=== PATIENT | female | born 1955 | race Caucasian/White ===

== ENCOUNTER 2018-12-19 06:27 | Day surgery (SDC) | payer OTHER ==
[2018-12-19] MEDS ORDERED: Lactated Ringers 1,000 ML IV SCH (07:00)
[2018-12-19] MEDS ORDERED: Midazolam 1 MG/ML 2 ML SDV ONE (07:32)
[2018-12-19] MEDS ORDERED: Propofol 200 MG/20 ML SDV ONE (07:32)
[2018-12-19] MEDS ORDERED: fentaNYL 100 MCG/2 ML SDV ONE (07:32)
[2018-12-19 09:23] VITALS: BP 143/82
--- NOTE | 2018-12-20 08:33 | OR ---
DATE OF PROCEDURE: 12/19/2018 PREOPERATIVE DIAGNOSIS: History of colon polyps. POSTOPERATIVE DIAGNOSIS: Three colon polyps, history of colon polyps. PROCEDURE PERFORMED: Colonoscopy to the cecum with biopsy resection of small polyp at 20 cm from the anal verge and snare cautery polypectomy of two at 25 cm from the anal verge. SURGEON: José Miguel Rubin MD ANESTHESIA: IV anesthesia with monitored anesthesia care. INDICATION: This 63-year-old white female is here for a colonoscopy. She has history of colon polyps at her last colonoscopic exam, which was done three years ago. These are precancerous. She is here for a followup colonoscopy. I counseled her for the procedure, including risks and alternatives, and she gave her informed consent to proceed. DESCRIPTION OF PROCEDURE: The patient was placed in the left lateral decubitus position. IV anesthesia was administered by the Anesthesia Service. Time-out was held. A rectal exam was performed, which was unremarkable. The flexible video Olympus colonoscope was introduced through her anus, up her rectum, andout her colon all the way to the cecum. En route, at 20 cm from anal verge, we saw a small polyp, which was removed with the biopsy forceps. Once the cecum was reached, the scope was slowly withdrawn examining the mucosa throughout. No additional mucosal abnormalities were noted until we reached 25 cm from the anal verge. Here, we saw a polyp, which was large enough to use a snare. The snare was passed about its base, it was elevated up away from the bowel wall and amputated as electrocautery was applied. It was aspirated up through the scope and captured in a polyp trap. Another polyp adjacent to this was then also removed with the snare. We initially biopsied it and then removed it with the snare. The snare was passed about its base, it was elevated up away from the bowel wall and amputated as electrocautery was applied. It was aspirated up through the scope and captured in a polyp trap. The scope was withdrawn further with no other lesions noted. The scope was retroflexed in the rectum with the distal rectum appearing unremarkable. The scope was straightened and removed. She tolerated the procedure well. José Miguel Rubin MD /[id number]
== END 2018-12-19 09:23 | disposition home or self-care (01) ==
LOC: JP.SDS 06:27
PROVIDERS: ATTEND Surgery
DX: Z12.11 Encounter for screening for malignant neoplasm of colon (principal); K63.5 Polyp of colon; E78.5 Hyperlipidemia, unspecified; E66.9 Obesity, unspecified; Z68.34 Body mass index [BMI] 34.0-34.9, adult; Z86.010 Personal history of colon polyps
CPT/HCPCS: 45380; 45385; 88305; J2250; J2704; J3010; J7120

== ENCOUNTER 2025-04-03 07:42 | Day surgery (SDC) | payer MEDICARE ==
[2025-04-03] MEDS ORDERED: Propofol 200 MG/20 ML SDV ONE (07:51)
[2025-04-03] MEDS ORDERED: fentaNYL 100 MCG/2 ML SDV ONE (07:51)
[2025-04-03] MEDS: Lactated Ringers 1,000 ML IV SCH (08:16)
[2025-04-03 10:31] VITALS: BP 121/85; PULSE 52
== END 2025-04-03 10:35 | disposition home or self-care (01) ==
LOC: JP.SDS 07:42
PROVIDERS: ATTEND Surgery
DX: Z12.11 Encounter for screening for malignant neoplasm of colon (principal); D12.5 Benign neoplasm of sigmoid colon; I10 Essential (primary) hypertension; E66.9 Obesity, unspecified
CPT/HCPCS: 00811; 45380; 45385; 88305; J2704; J3010; J7120